=== PATIENT | female | born 1985 | race Hispanic/Latino ===

== ENCOUNTER 2019-12-08 09:22 | Outpatient (CLI) | payer BC ==
--- NOTE | 2019-12-08 10:15 | ULT ---
GALLBLADDER ULTRASOUND: Date: 12/08/2019 HISTORY: Right upper quadrant pain. FINDINGS: Gallbladder has a normal sonographic appearance. No evidence of gallstones. Common bile duct normal c aliber measured at 4.0 mm. Visualized liver unremarkable. Pancreas partially imaged and appears unrem arkable as visualized. Right kidney is unremarkable as visualized. IMPRESSION: Unremarkable gallbladder ultrasound. POS: [facility]
== END 2019-12-08 09:23 | disposition home or self-care (01) ==
LOC: BICULT 09:22
PROVIDERS: ATTEND Nurse Practitioner Family
DX: R10.11 Right upper quadrant pain (principal)
CPT/HCPCS: 76705

== ENCOUNTER 2023-05-06 14:36 | Outpatient (CLI) | payer OTHER | END 2023-05-06 14:37 | disposition home or self-care (01) | LOC: BICULT 14:36 | PROVIDERS: ATTEND Nurse Practitioner Women's Health | DX: O09.892 Supervision of other high risk pregnancies, second trimester (principal); Z3A.22 22 weeks gestation of pregnancy | CPT/HCPCS: 76805 ==